=== PATIENT | male | born 1965 | race Caucasian/White ===

== ENCOUNTER 2021-01-09 16:30 | Inpatient (IN) ==
[2021-01-09 17:20] LABS: Rapid COVID-19 Molecular Detected (Undetected)
[2021-01-09 18:21] LABS: ABS Lymphocytes 0.5 10^3/ul (1.0-4.8); ABS Monocytes 0.4 10^3/ul (0-0.8); ABS Neutrophils 13.5 10^3/ul (1.5-7.7); Eosinophil % 0.1 %; Hematocrit 38 % (42-52); Hemoglobin 13.3 g/dL (14.0-18.0); Lymphocyte % 3.8 %; Mean Corpuscular HGB Conc 35 g/dL (31-36); Mean Corpuscular Hemoglobin 32 pg (27-31); Mean Corpuscular Volume 92 fL (80-94); Mean Platelet Volume 8.8 fL (7.4-10.4); Platelet Count 278 10^3/uL (150-450); Red Blood Count 4.18 10^6 /uL (4.18-5.48); Red Cell Distribution Width 13 % (10-15); White Blood Count 14.5 10^3/uL (3.5-10.8)
[2021-01-09] MEDS ORDERED: Ondansetron 4 mg VIAL 2 MG/ML 2 ml VIAL IV PRN (18:34)
[2021-01-09] MEDS ORDERED: Albuterol HFA INHALER 8 gm MDI INH PRN (18:35)
[2021-01-09 18:36] LABS: Albumin/Globulin Ratio 1.3 (1-3); EGFR African American 135.5 (>60); Globulin 3.1 g/dL (2-4); Potassium 3.4 mmol/L (3.5-5.0); Total Bilirubin 0.5 mg/dL (0.2-1.0); Total Protein 7.1 g/dL (6.4-8.9)
[2021-01-09] MEDS ORDERED: Potassium Chlor 20 meq TAB.ER PO ONE (18:41)
[2021-01-09] MEDS ORDERED: Remdesivir 100 mg Vial 200 MG in NS 0.9% 250 ml 210 ML IV ONE (18:45)
[2021-01-09 19:11] LABS: INR 1.35 (0.86-1.15)
[2021-01-09 19:18] LABS: C Reactive Protein 161.12 mg/L (<8.01)
[2021-01-09 20:42] LABS: Ferritin 738.1 ng/mL (24-336)
[2021-01-09 20:48] LABS: Erythrocyte Sed Rate 84 mm/Hr (0-19)
[2021-01-09] MEDS ORDERED: Enoxaparin 40 MG/0.4 ML SYR SUBCUT SCH (21:30)
[2021-01-10 06:07] LABS: ABS Monocytes 0.7 10^3/ul (0-0.8); Hematocrit 40 % (42-52); Hemoglobin 13.5 g/dL (14.0-18.0); Lymphocyte % 7.5 %; Mean Corpuscular HGB Conc 34 g/dL (31-36); Mean Corpuscular Hemoglobin 32 pg (27-31); Mean Corpuscular Volume 93 fL (80-94); Mean Platelet Volume 9.4 fL (7.4-10.4); Platelet Count 303 10^3/uL (150-450); Red Blood Count 4.24 10^6 /uL (4.18-5.48); Red Cell Distribution Width 13 % (10-15); White Blood Count 13.8 10^3/uL (3.5-10.8)
[2021-01-10 06:20] LABS: Albumin/Globulin Ratio 1.3 (1-3); Calcium 9.3 mg/dL (8.6-10.3); EGFR African American 127.4 (>60); EGFR Non-African American 105.3 (>60); Globulin 3.2 g/dL (2-4); INR 1.29 (0.86-1.15); Total Bilirubin 0.4 mg/dL (0.2-1.0); Total Protein 7.2 g/dL (6.4-8.9)
[2021-01-10] MEDS ORDERED: methylPREDNISolone 125 mg 2 ML VIAL IV ONE (17:20)
[2021-01-10 17:58] LABS: PCO2 Arterial 35 mmHg (35-45); PO2 Arterial 71 mmHg (80-100)
[2021-01-10] MEDS ORDERED: Furosemide 20 mg/2 ml IV VIAL IV SLOW PU ONE (20:45)
[2021-01-10] MEDS: Remdesivir 100 mg Vial 100 MG in NS 0.9% 250 ml 230 ML IV SCH (21:45)
[2021-01-10] MEDS: Enoxaparin 60 MG/0.6 ML SYR SUBCUT SCH (21:57)
[2021-01-10] MEDS: methylPREDNISolone SOD 40 mg/ml 1 ml VIAL IV SCH (23:49)
[2021-01-11] MEDS ORDERED: methylPREDNISolone SOD 40 mg/ml 1 ml VIAL IV SCH
[2021-01-11 07:34] LABS: ABS Lymphocytes 1.2 10^3/ul (1.0-4.8); ABS Monocytes 0.6 10^3/ul (0-0.8); ABS Neutrophils 13.4 10^3/ul (1.5-7.7); Hematocrit 38 % (42-52); Hemoglobin 12.9 g/dL (14.0-18.0); Lymphocyte % 7.6 %; Mean Corpuscular HGB Conc 34 g/dL (31-36); Mean Corpuscular Hemoglobin 31 pg (27-31); Mean Corpuscular Volume 92 fL (80-94); Mean Platelet Volume 9.4 fL (7.4-10.4); Platelet Count 327 10^3/uL (150-450); Red Blood Count 4.11 10^6 /uL (4.18-5.48); Red Cell Distribution Width 13 % (10-15); White Blood Count 15.2 10^3/uL (3.5-10.8)
[2021-01-11 07:49] LABS: INR 1.34 (0.86-1.15)
[2021-01-11 07:52] LABS: Albumin 3.9 g/dL (3.2-5.2); Albumin/Globulin Ratio 1.3 (1-3); Calcium 9.2 mg/dL (8.6-10.3); EGFR African American 123.7 (>60); EGFR Non-African American 102.2 (>60); Globulin 3.1 g/dL (2-4); Potassium 3.8 mmol/L (3.5-5.0); Total Bilirubin 0.3 mg/dL (0.2-1.0)
[2021-01-11] MEDS: methylPREDNISolone SOD 40 mg/ml 1 ml VIAL IV SCH ×3 (08:12→23:14)
[2021-01-11] MEDS: Enoxaparin 60 MG/0.6 ML SYR SUBCUT SCH ×2 (08:12→21:23)
[2021-01-11] MEDS ORDERED: Dexamethasone IV 4 MG/ML VIAL 1 ml VIAL IV SLOW PU SCH (09:00)
[2021-01-11] MEDS: guaiFENesin 100 mg/5 ml LIQ unit dose cup PO PRN ×3 (10:40→23:13)
[2021-01-11] MEDS: Remdesivir 100 mg Vial 100 MG in NS 0.9% 250 ml 230 ML IV SCH (21:26)
[2021-01-12] MEDS: guaiFENesin 100 mg/5 ml LIQ unit dose cup PO PRN ×3 (05:35→23:21)
[2021-01-12 07:03] LABS: ABS Lymphocytes 1.2 10^3/ul (1.0-4.8); ABS Monocytes 1.1 10^3/ul (0-0.8); Hematocrit 38 % (42-52); Lymphocyte % 6.4 %; Mean Corpuscular HGB Conc 34 g/dL (31-36); Mean Corpuscular Hemoglobin 31 pg (27-31); Mean Corpuscular Volume 92 fL (80-94); Mean Platelet Volume 9.1 fL (7.4-10.4); Platelet Count 351 10^3/uL (150-450); Red Blood Count 4.16 10^6 /uL (4.18-5.48); Red Cell Distribution Width 13 % (10-15); White Blood Count 18.3 10^3/uL (3.5-10.8)
[2021-01-12 07:04] LABS: INR 1.34 (0.86-1.15)
[2021-01-12 07:15] LABS: Albumin 3.6 g/dL (3.2-5.2); Albumin/Globulin Ratio 1.2 (1-3); C Reactive Protein 58.96 mg/L (<8.01); Calcium 8.9 mg/dL (8.6-10.3); EGFR African American 135.5 (>60); Globulin 3.1 g/dL (2-4); Potassium 4.1 mmol/L (3.5-5.0); Total Bilirubin 0.4 mg/dL (0.2-1.0); Total Protein 6.7 g/dL (6.4-8.9)
[2021-01-12 07:35] LABS: Ferritin 1397.2 ng/mL (24-336)
[2021-01-12] MEDS: methylPREDNISolone SOD 40 mg/ml 1 ml VIAL IV SCH ×3 (07:46→23:21)
[2021-01-12] MEDS: Enoxaparin 60 MG/0.6 ML SYR SUBCUT SCH ×2 (07:46→21:02)
[2021-01-12 08:59] LABS: Erythrocyte Sed Rate 68 mm/Hr (0-19)
[2021-01-12] MEDS: Remdesivir 100 mg Vial 100 MG in NS 0.9% 250 ml 230 ML IV SCH (21:03)
[2021-01-12] MEDS ORDERED: Saline NASAL SPRAY 0.65% BTL BOTH NARES PRN (21:34)
[2021-01-13 07:36] LABS: Hematocrit 38 % (42-52); Hemoglobin 12.8 g/dL (14.0-18.0); Mean Corpuscular HGB Conc 34 g/dL (31-36); Mean Corpuscular Hemoglobin 31 pg (27-31); Mean Corpuscular Volume 92 fL (80-94); Mean Platelet Volume 9.1 fL (7.4-10.4); Platelet Count 366 10^3/uL (150-450); Red Blood Count 4.14 10^6 /uL (4.18-5.48); Red Cell Distribution Width 13 % (10-15); White Blood Count 18.2 10^3/uL (3.5-10.8)
[2021-01-13 07:38] LABS: ABS Lymphocytes 1.5 10^3/ul (1.0-4.8); ABS Monocytes 1.3 10^3/ul (0-0.8); ABS Neutrophils 15.4 10^3/ul (1.5-7.7); Lymphocyte % 8.1 %
[2021-01-13] MEDS: methylPREDNISolone SOD 40 mg/ml 1 ml VIAL IV SCH ×2 (07:39→16:49)
[2021-01-13] MEDS: Enoxaparin 60 MG/0.6 ML SYR SUBCUT SCH ×2 (07:39→20:54)
[2021-01-13] MEDS: guaiFENesin 100 mg/5 ml LIQ unit dose cup PO PRN ×3 (07:39→21:39)
[2021-01-13 07:44] LABS: INR 1.33 (0.86-1.15)
[2021-01-13 08:02] LABS: Albumin 3.4 g/dL (3.2-5.2); Albumin/Globulin Ratio 1.3 (1-3); Calcium 8.5 mg/dL (8.6-10.3); Direct Bilirubin 0.1 mg/dL (0.03-0.18); EGFR African American 142.2 (>60); EGFR Non-African American 117.5 (>60); Globulin 2.7 g/dL (2-4); Indirect Bilirubin 0.2 mg/dL (0.3-1.0); Magnesium 2.3 mg/dL (1.9-2.7); Phosphorus 3.8 mg/dL (2.5-5.0); Potassium 4.6 mmol/L (3.5-5.0); Total Bilirubin 0.3 mg/dL (0.2-1.0); Total Protein 6.1 g/dL (6.4-8.9)
[2021-01-13] MEDS: Remdesivir 100 mg Vial 100 MG in NS 0.9% 250 ml 230 ML IV SCH (20:46)
[2021-01-14 07:54] LABS: INR 1.25 (0.86-1.15)
[2021-01-14 08:02] LABS: Albumin 3.4 g/dL (3.2-5.2); Albumin/Globulin Ratio 1.3 (1-3); Calcium 8.3 mg/dL (8.6-10.3); EGFR Non-African American 121.5 (>60); Globulin 2.6 g/dL (2-4); Potassium 4.3 mmol/L (3.5-5.0); Total Bilirubin 0.3 mg/dL (0.2-1.0)
[2021-01-14] MEDS: Enoxaparin 60 MG/0.6 ML SYR SUBCUT SCH ×2 (08:45→21:35)
[2021-01-15] MEDS: Enoxaparin 60 MG/0.6 ML SYR SUBCUT SCH ×2 (08:06→20:38)
[2021-01-16 05:18] LABS: Hematocrit 37 % (42-52); Hemoglobin 12.3 g/dL (14.0-18.0); Mean Corpuscular HGB Conc 34 g/dL (31-36); Mean Corpuscular Hemoglobin 31 pg (27-31); Mean Corpuscular Volume 92 fL (80-94); Mean Platelet Volume 8.9 fL (7.4-10.4); Platelet Count 343 10^3/uL (150-450); Red Blood Count 3.99 10^6 /uL (4.18-5.48); Red Cell Distribution Width 13 % (10-15); White Blood Count 17.7 10^3/uL (3.5-10.8)
[2021-01-16 05:44] LABS: EGFR African American 152.2 (>60); EGFR Non-African American 125.8 (>60); Magnesium 2.2 mg/dL (1.9-2.7); Phosphorus 3.8 mg/dL (2.5-5.0); Potassium 4.1 mmol/L (3.5-5.0)
[2021-01-16] MEDS ORDERED: Furosemide 20 mg/2 ml IV VIAL IV SLOW PU ONE (07:36)
[2021-01-16] MEDS: Enoxaparin 60 MG/0.6 ML SYR SUBCUT SCH ×2 (09:08→21:09)
[2021-01-17 05:14] LABS: Calcium 8.5 mg/dL (8.6-10.3); EGFR African American 113.7 (>60); EGFR Non-African American 93.9 (>60); Potassium 4.7 mmol/L (3.5-5.0)
[2021-01-17 08:13] VITALS: BP 116/75
[2021-01-17] MEDS: Enoxaparin 60 MG/0.6 ML SYR SUBCUT SCH (09:13)
[2021-01-17] MEDS ORDERED: Furosemide 20 mg/2 ml IV VIAL IV SLOW PU ONE (10:12)
== END 2021-01-17 10:37 | disposition home or self-care (01) | DRG 137 ==
LOC: ED 16:30 → MED 18:18 → SUATTDRO 18:18 → MED 20:14 → ICU 01-14 09:01
PROVIDERS: ADMIT Hospitalist; ATTEND Internal Medicine